=== PATIENT | female | born 1995 | race Caucasian/White ===

== ENCOUNTER 2017-10-03 08:03 | Emergency (ER) | payer OTHER ==
[~2017-10-03] VITALS: Ht 157.5 cm; Wt 56.5 kg
[2017-10-03 08:13] VITALS: Ht 157.5 cm; Wt 56.5 kg
[2017-10-03] MEDS ORDERED: SODIUM CHLORIDE 0.9% 1000ML 1,000 ML IV SCH (08:19)
--- NOTE | 2017-10-03 08:35 | EMERGENCY ROOM VISIT NOTE ---
History Report prepared by Mario: Min Roberts Under the Supervision of: Dr. Terrance Plata M.D. First contact with patient: 08:09 Chief Complaint: BACK PAIN Stated Complaint: BACK PAIN/NEAR SYNCOPE History of Present Illness The patient is a 21 year old female who presents to the Emergency Room with complaints of an episode of vision loss that occurred [employer]. She has a past medical history of lower back pain that began last summer which she has been experiencing intermittently since. Yesterday morning, the patient's pain got significantly worse so she went to [facility]. She received two prescriptions that she was unable to get filled because she was busy. She woke up this morning and felt the same as the day before until she began to brush her teeth. She then suddenly experienced a twenty second episode of "total blindness" without any other associated symptoms. This blindness resolved on its own and has not returned since. She denies any headache, dizziness, lightheadedness, nausea, vomiting, diarrhea, weakness, or numbness. She is not on control. She is taking Minocycline and Tretinoin. Source of History: patient Onset: earlier this morning Position: other (Vision) Symptom Intensity: 20 seconds Quality: other (Total Blindness) Timing: resolved Associated Symptoms: + back pain (lower), No headache, No nausea, No vomiting, No diarrhea, No weakness, No numbness Review of Systems See HPI for pertinent positives & negatives. A total of 10 systems reviewed and were otherwise negative. Past Medical & Surgical Medical Problems: (1) Lower back pain Family History Patient reports no known family medical history. Social History Smoking Status: Never Smoker Smokeless Tobacco Use: No Drug Use: none Marital Status: single Housing Status: lives with roommate Occupation Status: student Current/Historical Medications Scheduled Minocycline HCl (Minocycline HCl), 50 MG PO DAILY Multiple Vitamin (Multi Vitamin), 1 TAB PO DAILY Allergies Coded Allergies: No Known Allergies (Unverified , 10/03/17) Physical Exam Vital Signs Date Time Temp Pulse Resp B/P (MAP) Pulse Ox O2 Delivery O2 Flow Rate FiO2 10/03/17 11:10 94 18 111/61 99 Room Air 10/03/17 08:53 96 10/03/17 08:37 100 Room Air 10/03/17 08:13 36.4 65 18 102/57 100 Room Air Physical Exam GENERAL: Patient is a healthy-appearing well-nourished female HEAD: Normocephalic atraumatic EYES: Ocular movements intact pupils equal and react to light OROPHARYNX mucous membranes are moist no exudates present no erythema or edema present NECK: Supple no nuchal rigidity CHEST: Good equal expansion LUNGS: Clear and equal to auscultation CARDIAC: Normal S1 and S2 ABDOMEN: Soft nontender no guarding BACK: No CVA tenderness EXTREMITIES: No pain upon palpation normal muscle strength in all groups no clubbing cyanosis or edema NEURO: Patient is following commands and answering questions appropriately. Alert and oriented x3 Cranial Nerves 2-12 grossly intact Medical Decision & Procedures ER Provider Diagnostic Interpretation: Radiology results as stated below per my review and radiologist interpretation: L-SPINE MIN 4 VIEWS ROUTINE HISTORY: 21 years-old Female Pt c/o low back pain acute low back pain COMPARISON: None available TECHNIQUE: 5 views of the lumbar spine FINDINGS: There is minimal convex left curvature of the lumbar spine of less than 10 degrees which may be accentuated by patient positioning. There is no acute fracture or subluxation identified. No significant intervertebral disc space narrowing, spondylolysis or spondylolisthesis. Moderate stool volume is noted throughout the colon. IMPRESSION: 1. Minimal convex left curvature of the lumbar spine of less than 10 degrees without acute fracture, subluxation or significant degenerative changes. 2. Moderate stool volume suggests constipation. The above report was generated using voice recognition software. It may contain grammatical, syntax or spelling errors. Electronically signed by: Ronald Mckeon M.D. 10/03/2017 9:53 AM Dictated Date/Time: 10/03/2017 9:51 AM MRI OF THE BRAIN WITHOUT CONTRAST CLINICAL HISTORY: Vision loss. Near-syncope. Back pain. COMPARISON STUDY: None. TECHNIQUE: Utilizing a 1.5 Jojo magnet and dedicated coil, multiplanar, multiecho imaging of the brain was performed without IV contrast. FINDINGS: There are no foci of restricted diffusion. Brain volume is normal. No acute intracranial hemorrhage, midline shift or mass effect is present. Ventricular system is normal. Basilar cisterns are patent. Flow-voids for the major intracranial vessels are present. No intracranial masses identified on this unenhanced exam. No parenchymal signal abnormality is identified. Calvarial signal is normal. Flow-voids for the major intracranial vessels are present. Orbits are unremarkable. There is mild mucosal thickening of the maxillary sinuses and moderate mucosal thickening of the ethmoid sinuses. IMPRESSION: 1. Unremarkable unenhanced MRI of the brain. No acute intracranial findings. 2. Moderate ethmoid sinus mucosal thickening and mild maxillary sinus mucosal thickening. Electronically signed by: Aleksey Pappas M.D. 10/03/2017 11:12 AM Dictated Date/Time: 10/03/2017 11:08 AM Laboratory Results 10/03/17 08:30 Red Blood Count 4.66, Mean Corpuscular Volume 86.5, Mean Corpuscular Hemoglobin 28.8, Mean Corpuscular Hemoglobin Concent 33.3, Mean Platelet Volume 9.7, Neutrophils (%) (Auto) 53.7, Lymphocytes (%) (Auto) 35.6, Monocytes (%) (Auto) 7.5, Eosinophils (%) (Auto) 2.8, Basophils (%) (Auto) 0.3, Neutrophils # (Auto) 4.05, Lymphocytes # (Auto) 2.69, Monocytes # (Auto) 0.57, Eosinophils # (Auto) 0.21, Basophils # (Auto) 0.02 10/03/17 08:30 Test 10/03/17 08:30 10/03/17 11:20 White Blood Count 7.55 K/uL (4.8-10.8) Red Blood Count 4.66 M/uL (4.2-5.4) Hemoglobin 13.4 g/dL (12.0-16.0) Hematocrit 40.3 % (37-47) Mean Corpuscular Volume 86.5 fL (80-100) Mean Corpuscular Hemoglobin 28.8 pg (25-34) Mean Corpuscular Hemoglobin Concent 33.3 g/dl (32-36) Platelet Count 238 K/uL (130-400) Mean Platelet Volume 9.7 fL (7.4-10.4) Neutrophils (%) (Auto) 53.7 % Lymphocytes (%) (Auto) 35.6 % Monocytes (%) (Auto) 7.5 % Eosinophils (%) (Auto) 2.8 % Basophils (%) (Auto) 0.3 % Neutrophils # (Auto) 4.05 K/uL (1.4-6.5) Lymphocytes # (Auto) 2.69 K/uL (1.2-3.4) Monocytes # (Auto) 0.57 K/uL (0.11-0.59) Eosinophils # (Auto) 0.21 K/uL (0-0.5) Basophils # (Auto) 0.02 K/uL (0-0.2) RDW Standard Deviation 41.9 fL (36.4-46.3) RDW Coefficient of Variation 13.2 % (11.5-14.5) Immature Granulocyte % (Auto) 0.1 % Immature Granulocyte # (Auto) 0.01 K/uL (0.00-0.02) Prothrombin Time 11.2 SECONDS (9.0-12.0) Prothromb Time International Ratio 1.1 (0.9-1.1) Activated Partial Thromboplast Time 25.0 SECONDS (21.0-31.0) Partial Thromboplastin Ratio 1.0 Anion Gap 7.0 mmol/L (3-11) Est Creatinine Clear Calc Drug Dose 109.2 ml/min Estimated GFR () 148.1 Estimated GFR (Non- 127.8 BUN/Creatinine Ratio 12.1 (10-20) Calcium Level 9.3 mg/dl (8.5-10.1) Magnesium Level 2.3 mg/dl (1.8-2.4) Total Creatine Kinase 41 U/L (26-192) Creatine Kinase MB 0.7 ng/ml (0.5-3.6) Creatine Kinase MB Ratio 1.7 (0-3.0) Troponin I < 0.015 ng/ml (0-0.045) Human Chorionic Gonadotropin, Qual NEG (NEG) Labs reviewed by ED physician. Medications Administered Medications (Trade) Dose Ordered Sig/Ralf Route Start Time Stop Time Status Last Admin Dose Admin Sodium Chloride 1,000 ml @ 50 mls/hr Q20H IV 10/03/17 08:19 18 08:18 10/03/17 08:49 50 MLS/HR ECG Indication: weakness Rate (beats per minute): 59 Rhythm: sinus bradycardia Findings: no acute ischemic change, no ectopy ED Course 0809: Past medical records reviewed. The patient was evaluated in room B10. A complete history and physical examination was performed. 0815: I offered to speak with the patient's mother, but she would not like me to. 0819: Ordered Sodium Chloride 1000 ml @ 50 mls/hr IV 1127: I updated the patient at this time about her MRI results. She states that she has been having sinus symptoms for the past two days. I informed her that we usually only treat them after 1 week. She is in agreement. 1134: Upon reexamination the patient is resting. I discussed results and treatment plan with the patient. She verbalizes agreement and understanding. The patient is ready for discharge. Medical Decision Differential diagnosis: Etiologies such as metabolic, infection, hypo/hyperglycemia, electrolyte abnormalities, cardiac sources, intracerebral event, toxicologic, neurologic, as well as others were entertained. Medication Reconcilliation Current Medication List: was personally reviewed by me Blood Pressure Screening Patient's blood pressure: Normal blood pressure Blood pressure disposition: Did not require urgent referral Impression Primary Impression: Low back pain Scribe Attestation The scribe's documentation has been prepared under my direction and personally reviewed by me in its entirety. I confirm that the note above accurately reflects all work, treatment, procedures, and medical decision making performed by me. Departure Information Dispostion Home / Self-Care Referrals No Doctor, Assigned (PCP) Forms HOME CARE DOCUMENTATION FORM, IMPORTANT VISIT INFORMATION, School Instructions, Work Instructions Patient Instructions Back Pain - [facility], ED Back Care Tips, ED Exercises Lumbar Muscles, Leg Low Back Pain Poss Causes, My [facility] Additional Instructions Need follow up with [facility] You have been examined and treated today on an emergency basis only. This is not a substitute for, or an effort to provide, complete comprehensive medical care. It is impossible to recognize and treat all injuries or illnesses in a single emergency department visit. It is therefore important that you follow up closely with [facility]. Call as soon as possible for an appointment. Thank you for your time and consideration. I look forward to speaking with you again soon. Please don't hesitate to call us if you have any questions. Problem Qualifiers Primary Impression: Low back pain Chronicity: acute Back pain laterality: midline Sciatica presence: without sciatica Qualified Codes: M54.5 - Low back pain
[2017-10-03 08:37] VITALS: O2SAT 100
[2017-10-03 08:42] LABS: BASO % 0.3 %; BASO ABS # 0.02 K/uL (0-0.2); EOS % 2.8 %; EOS ABS # 0.21 K/uL (0-0.5); HEMATOCRIT 40.3 % (37-47); HEMOGLOBIN 13.4 g/dL (12.0-16.0); IG# 0.01 K/uL (0.00-0.02); LYMPH % 35.6 %; LYMPH ABS # 2.69 K/uL (1.2-3.4); MEAN CELL VOLUME 86.5 fL (80-100); MEAN CORPUSCULAR HEMOGLOBIN 28.8 pg (25-34); MEAN CORPUSCULAR HGB CONC 33.3 g/dl (32-36); MEAN PLATELET VOLUME 9.7 fL (7.4-10.4); MONO % 7.5 %; MONO ABS # 0.57 K/uL (0.11-0.59); NEUT % 53.7 %; NEUT ABS # 4.05 K/uL (1.4-6.5); PLATELET COUNT 238 K/uL (130-400); RED CELL DISTRIBUTION WIDTH CV 13.2 % (11.5-14.5); RED CELL DISTRIBUTION WIDTH SD 41.9 fL (36.4-46.3); WHITE BLOOD COUNT 7.55 K/uL (4.8-10.8)
[2017-10-03 08:51] LABS: INR 1.1 (0.9-1.1)
[2017-10-03 08:58] LABS: BLOOD UREA NITROGEN 8 mg/dl (7-18); CALCIUM 9.3 mg/dl (8.5-10.1); CARBON DIOXIDE 28 mmol/L (21-32); CREATININE 0.65 mg/dl (0.60-1.20); GLUCOSE 89 mg/dl (70-99); POTASSIUM 3.8 mmol/L (3.5-5.1); SODIUM 138 mmol/L (136-145)
[2017-10-03 09:03] LABS: CKMB 0.7 ng/ml (0.5-3.6)
[2017-10-03] MEDS ORDERED: MULT-1027 PO (09:15)
[2017-10-03] MEDS ORDERED: MNC50 PO (09:15)
--- NOTE | 2017-10-03 09:54 | DIAGNOSTIC IMAGING REPORT ---
L-SPINE MIN 4 VIEWS ROUTINE HISTORY: 21 years-old Female Pt c/o low back pain acute low back pain COMPARISON: None available TECHNIQUE: 5 views of the lumbar spine FINDINGS: There is minimal convex left curvature of the lumbar spine of less than 10 degrees which may be accentuated by patient positioning. There is no acute fracture or subluxation identified. No significant intervertebral disc space narrowing, spondylolysis or spondylolisthesis. Moderate stool volume is noted throughout the colon. IMPRESSION: 1. Minimal convex left curvature of the lumbar spine of less than 10 degrees without acute fracture, subluxation or significant degenerative changes. 2. Moderate stool volume suggests constipation. The above report was generated using voice recognition software. It may contain grammatical, syntax or spelling errors. Electronically signed by: Ronald Mckeon M.D. 10/03/2017 9:53 AM Dictated Date/Time: 10/03/2017 9:51 AM
--- NOTE | 2017-10-03 11:13 | DIAGNOSTIC IMAGING REPORT ---
MRI OF THE BRAIN WITHOUT CONTRAST CLINICAL HISTORY: Vision loss. Near-syncope. Back pain. COMPARISON STUDY: None. TECHNIQUE: Utilizing a 1.5 Jojo magnet and dedicated coil, multiplanar, multiecho imaging of the brain was performed without IV contrast. FINDINGS: There are no foci of restricted diffusion. Brain volume is normal. No acute intracranial hemorrhage, midline shift or mass effect is present. Ventricular system is normal. Basilar cisterns are patent. Flow-voids for the major intracranial vessels are present. No intracranial masses identified on this unenhanced exam. No parenchymal signal abnormality is identified. Calvarial signal is normal. Flow-voids for the major intracranial vessels are present. Orbits are unremarkable. There is mild mucosal thickening of the maxillary sinuses and moderate mucosal thickening of the ethmoid sinuses. IMPRESSION: 1. Unremarkable unenhanced MRI of the brain. No acute intracranial findings. 2. Moderate ethmoid sinus mucosal thickening and mild maxillary sinus mucosal thickening. Electronically signed by: Aleksey Pappas M.D. 10/03/2017 11:12 AM Dictated Date/Time: 10/03/2017 11:08 AM
[2017-10-03 11:46] VITALS: BP 111/61; PULSE 84; TEMP 36.4; O2SAT 98
== END 2017-10-03 11:50 | disposition home or self-care (01) ==
LOC: C.EDB 08:08
DX: M54.5 Low back pain (principal)